=== PATIENT | female | born 1950 | race Caucasian/White ===

== ENCOUNTER → 2018-10-07 | Outpatient (REF) | payer MEDICARE ==
[~2018-10-07] MED LIST: ABIL10TA; AMBI10TA; ATIV1TAB2; CLON-412; COLA100C2 OR; ESTR0.5T; LAMI1TAB7; LISI10TA4; LODINE; METH10TA2; NABU500T; NORCO PO; OXYC10TA12 OR; PERC5TAB8 OR; VENL100T; VICO5TAB
== END ==
LOC: M LAB REF 13:52 → M LAB LCGH 13:52 → M LAB REF 10-09 13:51
PROVIDERS: ATTEND Nurse Practitioner Family
DX: C44.521 Squamous cell carcinoma of skin of breast (principal)

== ENCOUNTER 2022-01-01 11:59 | Outpatient (RCR) | payer MEDICARE | END 2022-01-07 | LOC: M PT 11:59 | PROVIDERS: ATTEND Family Medicine | DX: I89.0 Lymphedema, not elsewhere classified (principal) ==

== ENCOUNTER 2022-02-02 14:02 | Outpatient (RCR) | payer MEDICARE | END 2022-02-07 | LOC: M PT 14:02 | PROVIDERS: ATTEND Family Medicine | DX: I89.0 Lymphedema, not elsewhere classified (principal) ==

== ENCOUNTER 2022-03-08 09:58 | Outpatient (RCR) | payer MEDICARE | END 2022-03-09 | LOC: M PT 09:58 | PROVIDERS: ATTEND Family Medicine | DX: I89.0 Lymphedema, not elsewhere classified (principal) ==

== ENCOUNTER → 2022-04-26 | Outpatient (REF) | payer MEDICARE ==
[2022-04-26 18:52] LABS: BASO # 0.1 10^3/uL (0.0-0.2); BASO % 0.5 % (0.0-1.0); EOS # 0.2 10^3/uL (0.0-0.5); EOS % 1.7 % (0.0-3.0); HEMATOCRIT 40.5 % (36.0-47.0); HEMOGLOBIN 11.8 g/dl (12.0-15.5); LYMPH # 1.8 10^3/uL (1.5-5.0); LYMPH % 16.3 % (24.0-44.0); MEAN CORPUSCULAR HGB CONC 29.1 g/dl (32.0-36.5); MEAN CORPUSCULAR VOLUME 89.2 fl (80.0-96.0); MONO # 0.8 10^3/uL (0.0-0.8); MONO % 7.5 % (2.0-8.0); NEUTROPHILS # 8.1 10^3/uL (1.5-8.5); NEUTROPHILS % 72.8 % (36.0-66.0); PLATELET COUNT, AUTOMATED 286 10^3/uL (150-450); RED BLOOD COUNT 4.54 10^6/uL (4.00-5.40); WHITE BLOOD COUNT 11.1 10^3/uL (4.0-10.0)
[2022-04-26 19:08] LABS: APPEARANCE, URINE MANUAL CLEAR (CLEAR); COLOR, URINE MANUAL YELLOW (YELLOW); SPECIFIC GRAVITY,URINE MANUAL 1.015 (1.002-1.035)
[2022-04-26 19:09] LABS: BILIRUBIN, URINE MANUAL NEGATIVE (NEGATIVE); BLOOD URINE MANUAL NEGATIVE (NEGATIVE); GLUCOSE, URINE (UA) MANUAL NEGATIVE (NEGATIVE); KETONE, URINE MANUAL NEGATIVE (NEGATIVE); LEUKOCYTE ESTERASE, URINE MAN POSITIVE (NEGATIVE); NITRITE, URINE MANUAL POSITIVE (NEGATIVE); PROTEIN, URINE MANUAL NEGATIVE (NEGATIVE); UROBILINOGEN, URINE MANUAL NORMAL (NORMAL)
[2022-04-26 19:37] LABS: BACTERIA, URINE MOD AMOUNT; HYALINE CAST, URINE NONE SEEN /lpf (0-1); SQUAMOUS EPITHELIAL CELL URINE NONE SEEN /hpf (SMALL AMT)
[2022-04-26 20:15] LABS: ERYTHROCYTE SEDIMENTATION RATE 59 mm/hr (0-30)
[2022-04-26 20:48] LABS: CREATININE,RANDOM URINE 36.9 MG/DL; TOTAL PROTEIN,RANDOM URINE 9.4 MG/DL (0.0-14.0)
[2022-04-26 21:24] LABS: ALBUMIN 3.5 G/DL (3.2-5.2); ALT/SGPT 15 U/L (7.0-40); BILIRUBIN,DIRECT 0.2 MG/DL (<0.4); BILIRUBIN,TOTAL 0.5 MG/DL (0.3-1.2); BLOOD UREA NITROGEN 22 MG/DL (9-23); CALCIUM LEVEL 9.8 MG/DL (8.3-10.6); CARBON DIOXIDE LEVEL 32 MMOL/L (20-31); CHLORIDE LEVEL 100 MMOL/L (98-107); COMPLEMENT C3 192.9 MG/DL (90.0-170.0); COMPLEMENT C4 47.2 MG/DL (12-36); CREATININE FOR GFR 0.71 MG/DL (0.55-1.30); GLOMERULAR FILTRATION RATE > 60.0 (>39); GLUCOSE, FASTING 107 MG/DL (74-106); IMMUNOGLOBULIN A 217.8 MG/DL (40-350); IMMUNOGLOBULIN G 976 MG/DL (650-1600); SODIUM LEVEL 140 MMOL/L (136-145); TOTAL PROTEIN 6.5 G/DL (5.7-8.2); TOTAL PROTEIN 6.5 GM/DL (6.4-8.2)
[2022-04-27 09:34] LABS: DRVV SCREEN 43.1 SEC
[2022-04-27 09:36] LABS: PTT LUPUS TYPE ANTICOAG SCREEN 1.1 (0-1.2)
== END ==
LOC: M SFHCRHEU 15:37
PROVIDERS: ATTEND Internal Medicine
DX: M06.4 Inflammatory polyarthropathy (principal)

== ENCOUNTER 2022-07-17 09:51 | Outpatient (RCR) | payer MEDICARE | END 2022-08-07 | LOC: M PT 09:51 | PROVIDERS: ATTEND Family Medicine | DX: I89.0 Lymphedema, not elsewhere classified (principal) ==

== ENCOUNTER → 2022-09-19 | Outpatient (REF) | payer MEDICARE | LOC: M LAB REF 17:40 | PROVIDERS: ATTEND Otolaryngology | DX: D10.39 Benign neoplasm of other parts of mouth (principal) ==

== ENCOUNTER → 2023-02-05 | Outpatient (REF) | payer MEDICARE | LOC: SKLAB7 07:39 | PROVIDERS: ATTEND Internal Medicine | DX: Z53.8 Procedure and treatment not carried out for other reasons (principal) ==

== ENCOUNTER → 2023-02-06 | Outpatient (REF) | payer MEDICARE | LOC: SKLAB7 07:00 | PROVIDERS: ATTEND Internal Medicine | DX: S82.842D Displaced bimalleolar fracture of left lower leg, subsequent encounter for closed fracture with routine healing (principal); Z98.890 Other specified postprocedural states; Z96.7 Presence of other bone and tendon implants ==

== ENCOUNTER → 2023-02-13 | Outpatient (REF) | LOC: M RAD 12:19 | PROVIDERS: ATTEND Internal Medicine | DX: Z00.00 Encounter for general adult medical examination without abnormal findings (principal) ==

== ENCOUNTER → 2023-02-13 | Outpatient (REF) | LOC: SKLAB7 11:16 | PROVIDERS: ATTEND Internal Medicine | DX: S82.899D Other fracture of unspecified lower leg, subsequent encounter for closed fracture with routine healing (principal); Z53.8 Procedure and treatment not carried out for other reasons ==